=== PATIENT | female | born 1975 | race Caucasian/White ===

== ENCOUNTER → 2019-03-15 14:07 | Outpatient (CLI) | payer BC | END | disposition home or self-care (01) | LOC: D.US 14:07 | PROVIDERS: ATTEND Nurse Practitioner Family | DX: S82.92XA Unspecified fracture of left lower leg, initial encounter for closed fracture (principal) ==

== ENCOUNTER 2019-07-19 05:12 | Day surgery (SDC) | payer BC ==
[~2019-07-19] VITALS: Ht 154.9 cm; Wt 61.2 kg
[2019-07-19 05:56] LABS: HEMATOCRIT 39.8 % (36.0-48.0); MCH 28.1 pg (26.0-34.0); MCHC 32.7 g/dL (31.0-37.0); MEAN PLATELET VOLUME 10.2 fL (7.4-10.4); RBC 4.63 10x6/uL (4.00-5.40); RDW 12.7 % (11.5-14.5); WBC 3.9 10x3/uL (4.8-10.8)
[2019-07-19] MEDS ORDERED: EQUATE SLEEP AID (06:21)
[2019-07-19 06:23] VITALS: BP 118/64; Ht 154.9 cm; Wt 61.2 kg
[2019-07-19] MEDS ORDERED: HYDROCODON-ACE1 EAC7 PO (07:48)
--- NOTE | 2019-07-19 09:08 | OP ---
PATIENT NAME: GALILEO ROBBINS MEDICAL RECORD: [id number] :71 LOCATION:[facility] ADMISSION DATE: SURGEON: ROBERTO HUNT DO DATE OF OPERATION: 07/19/2019 PROCEDURE PERFORMED: Removal of hardware from the left tibia. PREOPERATIVE DIAGNOSES: Left tibia painful hardware and delayed union, left tibial shaft fracture. POSTOPERATIVE DIAGNOSES: Left tibia painful hardware and delayed union, left tibial shaft fracture. INDICATIONS: Ms. Robbins is a 43-year-old female who was in a skiing accident in March. She had a severe spiral tibial shaft fracture which was fixed where she was skiing with an intramedullary nail. She had 3 distal screws. They were all giving her problems. She had been following up in my clinic, been watching her tibial shaft fracture on the lateral fracture, seemed to be well healed on the AP. There is still some delayed union on medial and lateral sides of the shaft. Knowing that, I told her that we take out the distal screws and I looked at the fracture and then to see what we will do from there. She was okay with that and was aware of the risks of continued pain, continued delayed union problems with the incision sites, infection, bleeding, damage to nerves and vessels in the area and she signed the consent. SURGEON: Roberto Hunt DO DESCRIPTION OF PROCEDURE: The patient was taken to the OR suite, laid in supine position, given general anesthetic, given a gram of Ancef preoperatively. The left lower extremity was then prepped and draped in sterile fashion. A time-out was performed, everyone was in agreeance with the correct side, site, patient, and the procedure. We then began by addressing the distal medial screw first. Incision was made over it and careful dissection was made down to the screw. Any bleeding was coagulated with a pickup and a Bovie. At this time, the screw was then removed. We then addressed the anterior screw, the more proximal one and removed it in the same fashion. Once that was out, I evaluated the fracture site under fluoroscopy and saw that it was not quite healed in the shaft, so in order to address that I chose to dynamize the nail, removed the static screw in the proximal nail, made to dynamize the screw and I called her during the procedure and he was okay with that, and he said she would should be fine with allowing that to happen in order to get to heal. The proximal screw was removed and x-rays taken to ensure that these screws had been properly removed. We then irrigated and sites were injected with 0.25% Marcaine with epinephrine, approximately 10 mL in each and then closed with 4-0 Monocryl in an inverted interrupted fashion. This was done by Dionicio Matute, certified surgical front office assistant. She was then dressed with Adaptic, 4 x 4s, ABD, cast padding and Wisam wrap. She was then awakened and taken to recovery in stable condition. BLOOD LOSS: Minimal. COMPLICATIONS: None. TRANSINT:[id number] Voice Confirmation ID: [id number] DOCUMENT ID: [id number] OPERATIVE REPORT [id number] GALILEO ROBBINS MICHAEL D, DO at 0908 CC: [id number] DICTATION DATE: 07/19/19 0758 BOXING INSTRUCTOR: 07/19/[address] [facility] [address] [place] [address]
== END 2019-07-19 09:20 | disposition home or self-care (01) ==
LOC: D.PAN 05:12 → D.OPS 07:00 → D.PAN 09:20
PROVIDERS: Anesthesiology; ATTEND Orthopaedic Surgery
DX: T84.84XA Pain due to internal orthopedic prosthetic devices, implants and grafts, initial encounter (principal)

== ENCOUNTER → 2019-11-29 13:20 | Outpatient (CLI) | payer BC ==
[2019-07-19 06:23] VITALS: BMI 25.5
[~2019-11-29 13:20] MED LIST: EQUATE SLEEP AID; HYDROCODON-ACE1 EAC7 PO
== END | disposition home or self-care (01) ==
LOC: D.MRI 13:20
PROVIDERS: ATTEND Orthopaedic Surgery
DX: M54.16 Radiculopathy, lumbar region (principal)